=== PATIENT | female | born 1985 | race Caucasian/White ===

== ENCOUNTER 2023-08-10 08:49 | Emergency (ER) | payer OTHER, SELFPAY ==
--- NOTE | ~2023-08-10 | XR_ITS ---
XR chest 2V DATE: 08/10/2023 09:52 INDICATION: Palpitations for 4 weeks TECHNIQUE: PA and lateral views COMPARISON: None FINDINGS: Normal heart size. No hilar or mediastinal enlargement. No pulmonary infiltrate or consolid ation, pleural effusion or pulmonary vascular congestion or pneumothorax is detected. Included skelet al structures are unremarkable other than mild thoracic dextroscoliosis. IMPRESSION: No active cardiopulmonary disease Reviewed, dictated and finalized at location [facility].
--- NOTE | 2023-08-10 09:00 | ECG_ITS ---
Measurements Intervals [place] Rate: 83 P: 53 MI: 136 QRS: -16 QRSD: 99 T: 45 QT: 359 QTc: 422 Interpretive Statements SINUS RHYTHM INCOMPLETE RIGHT BUNDLE BRANCH BLOCK DELAYED PRECORDIAL R/S TRANSITION BORDERLINE ST-T WAVE ABNORMALITY- HIGH LATERAL LEADS BASELINE ARTIFACT- I, II, AVR, AVL, AVF BORDERLINE ECG NO PREVIOUS ECG AVAILABLE FOR COMPARISON Electronically Signed On 08-10-2023 9:19:14 CDT by Hemant Menendez D.O.
[2023-08-10 09:17] VITALS: BP 155/90; PULSE 87; RESP 16; TEMP 36.8; O2SAT 99
[2023-08-10 09:21] VITALS: PULSE 89
[2023-08-10 09:24] LABS: Basophils Percent Auto 0.3 % (0.2-1.2); Eosinophils Absolute Auto 0.1 K/mm3 (0-0.3); Eosinophils Percent Auto 2.2 % (0-4.4); Hematocrit 45.8 % (37.0-47.0); Hemoglobin 15.7 g/dL (12.0-15.0); Immature Granulocyte Absolute 0.01 K/mm3 (0.00-0.031); Immature Granulocyte Percent A 0.2 % (0-0.5); Lymphocytes Percent Auto 23.4 % (18.3-44.2); Mean Corpuscular HGB Conc 34.3 g/dl (32-36); Mean Corpuscular Hemoglobin 31.6 pg (26-34); Mean Corpuscular Volume 92.2 fl (80-100); Mean Platelet Volume 9.7 fl (7.4-10.4); Monocytes Absolute Auto 0.4 K/mm3 (0.1-0.6); Monocytes Percent Auto 7.4 % (2.6-8.5); Neutrophils Percent Auto 66.5 % (45.5-73.1); Platelet Count Result 214 k/mm3 (150-375); Red Blood Count 4.97 M/mm3 (4.2-5.4); Red Cell Distribution Width 12.1 % (11.5-14.5)
[2023-08-10 09:36] LABS: Alanine Aminotransferase 35 U/L (6-35); Alkaline Phosphatase 59 U/L (38-126); Anion Gap 7 mmol/L (8-16); Aspartate Amino Transferase 35 U/L (14-36); Bilirubin,Total 1.5 mg/dL (0.2-1.3); Blood Urea Nitrogen 16 mg/dL (7-17); Calcium 10.1 mg/dL (8.4-10.2); Carbon Dioxide 25 mmol/L (22-30); Chloride 105 mmol/L (98-107); Estimated CRCL calculation 97 ml/min; Estimated Glomerular Filt Rate > 60; Glucose 107 mg/dL (65-110); Lipase 99 U/L (23-300); Potassium 3.9 mmol/L (3.4-5.0); Sodium 137 mmol/L (137-145)
[2023-08-10 09:39] LABS: INR 0.9; Prothrombin Time 12.9 Seconds (11.1-14.7)
--- NOTE | 2023-08-10 09:39 | ED.GENADULT ---
HPI - General Adult General Chief complaint: Arrhythmia/Palpitations Stated complaint: Elevated Heart Rate Time Seen by Provider: 08/10/23 08:59 History of Present Illness HPI narrative: Juliet Romeo is a 37 y/o female who presents today with complaints of left sided chest pain/ elevated heart rate / and feeling SOB. 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 She explains that this time she has been having off and on chest pain for about 4 weeks - she presented to an ER last Thursday and had a cardiac work up that she states was ok. SHe states that she has been monitoring her heart rate at home and today when she was getting her kids ready for school she noticed her heart rate was over 100 up to 109 112. She sat down to get it to go down but it wasn't going down. She then was able to do a rhythm check from her watch which read inconclusive she didn't have chest pain at that time but it concerned her. She called her nurse friends and they suggested she return to the ER. She states that on the way here she started to have left sided chest pain but the pain right now is improving She also adds that her father had a heart attack at 44. Related Data Allergies Allergy/AdvReac Type Severity Reaction Status Date / Time amoxicillin Allergy Unknown Skin Verified 05/29/17 21:20 Reaction minocycline Allergy Unknown itchy Verified 05/29/17 21:20 Penicillins Allergy Unknown Skin Verified 05/29/17 21:20 Reaction Review of Systems Review of Systems: CONSTITUTIONAL: Denies fever, chills, or sweats. EYES: Denies visual changes, redness, or discharge. ENT: Denies rhinorrhea, congestion, sore throat, or otalgia. CARDIOVASCULAR: Reports chest pain that stated today on the way here, palpitations this morning, no edema. RESPIRATORY: Denies cough or dyspnea. GASTROINTESTINAL: Denies abdominal pain, nausea, vomiting, or diarrhea. GENITOURINARY: Denies dysuria or hematuria. SKIN: Denies rash or itching. MUSCULOSKELETAL: Denies back pain, joint pain, or myalgia. NEUROLOGIC: Denies headache, numbness, dizziness, or weakness. PSYCHIATRIC: Denies anxiety or depression. Exam Narrative: GENERAL: Well-appearing, well-nourished, and in no acute distress. HEAD: Normocephalic, atraumatic. EYES: PERRLA and EOMI. ENT: Nares clear, no rhinorrhea or epistaxis. Mucous membranes moist. Oropharynx without tonsillar hypertrophy exudate or other lesions. NECK: Supple. No adenopathy or masses. No carotid bruits or JVD CHEST: Clear to auscultation. No respiratory distress. No wheezes rales or rhonchi HEART: Regular rate and rhythm. No murmur heard. Normal peripheral pulses. ABDOMEN: Soft, nontender, nondistended, normal active bowel sounds. EXTREMITIES: Normal range of motion. No edema. SKIN: Warm, dry, no rash. NEURO: No focal deficits. Alert and oriented x3. PSYCH: Normal mood and affect. Course Vital Signs Vital signs: Vital Signs Temperature 36.8 C 08/10/23 09:17 Pulse Rate 87 08/10/23 09:17 Respiratory Rate 16 08/10/23 09:17 Blood Pressure 155/90 H 08/10/23 09:17 Pulse Oximetry 99 08/10/23 09:17 Temperature 36.8 C 08/10/23 09:17 Pulse Rate 77 08/10/23 14:30 Respiratory Rate 18 08/10/23 14:30 Blood Pressure 119/79 08/10/23 14:30 Pulse Oximetry 98 08/10/23 14:30 Medical Decision Making MDM Narrative Medical decision making narrative: ED COURSE AND MEDICAL DECISION MAKING:? 37 y/o presenting with chest pain. EKG done in triage negative for acute ischemic changes.? Cardiac workup is initiated.? ? EKG: .?Rate 83 SC 136 QRSd 99 QT 359 QTc 422 --[place]-- P 53 QRS -16 T 45 SINUS RHYTHM INCOMPLETE RIGHT BUNDLE BRANCH BLOCK DELAYED PRECORDIAL R/S TRANSITION BORDERLINE ST-T WAVE ABNORMALITY- HIGH LATERAL LEADS BASELINE ARTIFACT- I, II, AVR, AVL, AV
[2023-08-10 09:40] LABS: Partial Thromboplastin Time 24.1 Seconds (22.3-36.8)
[2023-08-10 09:46] LABS: Troponin I < 0.012 ng/mL (0.000-0.034)
[2023-08-10 10:00] VITALS: BP 130/76; PULSE 75; RESP 16; O2SAT 100
[2023-08-10 10:06] LABS: D Dimer 0.33 ug/mL (<0.48)
[2023-08-10 10:08] LABS: NT Pro B Type Natriuretic Pept < 20 pg/mL (19.9-100)
[2023-08-10 11:30] VITALS: BP 131/78; PULSE 77; RESP 16; O2SAT 100
[2023-08-10 13:00] VITALS: BP 125/72; PULSE 81; RESP 16; O2SAT 99
--- NOTE | 2023-08-10 13:27 | ECG_ITS ---
Measurements Intervals [place] Rate: 67 P: 36 HI: 142 QRS: -16 QRSD: 89 T: 53 QT: 404 QTc: 429 Interpretive Statements SINUS RHYTHM BASELINE ARTIFACT- I, II, III, AVF NORMAL ECG COMPARED TO ECG 08/10/2023 09:06:36 NO SIGNIFICANT CHANGES Electronically Signed On 08-11-2023 9:15:00 CDT by Hemant Menendez D.O.
[2023-08-10 13:33] LABS: Troponin I < 0.012 ng/mL (0.000-0.034)
[2023-08-10 14:30] VITALS: BP 119/79; PULSE 77; RESP 18; O2SAT 98
--- NOTE | 2023-08-13 15:34 | WPDHOLTEREM ---
Holter/Event Monitor Holter/Event Monitor Date of procedure: 08/10/23 Holter/Event Procedure: 48 Hr Holter Monitor Indications: Chest pain, tachycardia Conclusion: 1. 48 hour holter monitor on 08/10/23. 2. Underlying rhythm is sinus rhythm. HR range 45-140 bpm; average HR 74 bpm. HR at 45 bpm was at 23:42. HR at 140 bpm was at 08:10. 3. There are 21 premature supraventricular complexes and 4 supraventricular couplets. No supraventricular tachycardia. 4. There are 227 premature ventricular complexes. No ventricular tachycardia. 5. No sinoatrial or atrioventricular blocks. No significant pauses greater than 2 seconds. 6. No symptoms available for correlation.
== END 2023-08-10 14:30 | disposition home or self-care (01) ==
PROVIDERS: Emergency Provider Nurse Practitioner Family
DX: R07.9 Chest pain, unspecified (principal); I45.10 Unspecified right bundle-branch block; R94.31 Abnormal electrocardiogram [ECG] [EKG]
CPT/HCPCS: 36415; 71046; 80053; 83690; 83880; 84484; 85025; 85380; 85610; 85730; 93005; 93225; 93226; 99284

== ENCOUNTER 2023-08-12 02:30 | Emergency (ER) | payer OTHER, SELFPAY ==
--- NOTE | ~2023-08-12 | XR_ITS ---
Portable chest x-ray Comparison: 08/10/2023 Clinical History: Chest pain Findings: Lungs are clear, without focal consolidation or pleural effusion. Cardiomediastinal silho uette is stable. Bones and soft tissues are unremarkable. Impression: Normal chest. Reviewed, dictated and finalized at [facility]. Impression: Normal chest.
--- NOTE | 2023-08-12 02:32 | ECG_ITS ---
Measurements Intervals [place] Rate: 84 P: 48 TN: 136 QRS: -19 QRSD: 102 T: 44 QT: 355 QTc: 421 Interpretive Statements SINUS RHYTHM WITH SINUS ARRHYTHMIA INCOMPLETE RIGHT BUNDLE BRANCH BLOCK BASELINE ARTIFACT- I, II, III, AVR, AVF, V1-V6 BORDERLINE ECG COMPARED TO ECG 08/10/2023 13:27:44 SINUS ARRHYTHMIA NOW PRESENT INCOMPLETE RIGHT BUNDLE-BRANCH BLOCK NOW PRESENT Electronically Signed On 08-12-2023 6:29:00 CDT by Hemant Menendez D.O.
[2023-08-12 02:36] VITALS: BP 134/97; PULSE 72; RESP 16; TEMP 36.4; O2SAT 100
[2023-08-12 02:50] LABS: Basophils Percent Auto 0.4 % (0.2-1.2); Eosinophils Absolute Auto 0.2 K/mm3 (0-0.3); Eosinophils Percent Auto 2.3 % (0-4.4); Hematocrit 45.6 % (37.0-47.0); Hemoglobin 15.6 g/dL (12.0-15.0); Immature Granulocyte Absolute 0.03 K/mm3 (0.00-0.031); Immature Granulocyte Percent A 0.4 % (0-0.5); Lymphocytes Absolute Auto 2.13 K/mm3 (0.9-3.2); Lymphocytes Percent Auto 30.5 % (18.3-44.2); Mean Corpuscular HGB Conc 34.2 g/dl (32-36); Mean Corpuscular Hemoglobin 31.3 pg (26-34); Mean Corpuscular Volume 91.6 fl (80-100); Mean Platelet Volume 9.5 fl (7.4-10.4); Monocytes Absolute Auto 0.5 K/mm3 (0.1-0.6); Monocytes Percent Auto 7.6 % (2.6-8.5); Neutrophils Absolute Auto 4.1 K/mm3 (1.3-6.7); Neutrophils Percent Auto 58.8 % (45.5-73.1); Platelet Count Result 205 k/mm3 (150-375); Red Blood Count 4.98 M/mm3 (4.2-5.4)
[2023-08-12] MEDS: ASPIRIN 81 MG CHEWABLE TABLET 324 MG PO (02:51)
[2023-08-12 02:52] VITALS: PULSE 83
[2023-08-12 02:53] VITALS: BP 134/97; PULSE 75; RESP 15; TEMP 36.7; O2SAT 100
--- NOTE | 2023-08-12 02:59 | ED.GENADULT ---
HPI - General Adult General Chief complaint: Chest Pain Stated complaint: CHEST PAIN, NAUSEA Time Seen by Provider: 08/12/23 02:40 History of Present Illness HPI narrative: Patient 37-year-old female who presents emergency department with chief complaint of chest pain. Patient reports that she woke up this evening in the low 90s and had discomfort in her chest. Patient states heaviness sensation also felt as though her heart beating fast. Patient seen in the emergency department recently and had a Holter monitor placed. The patient states that she has family history for cardiac disease at a young age with her father having heart attack at age 44. Related Data Allergies Allergy/AdvReac Type Severity Reaction Status Date / Time amoxicillin Allergy Unknown Skin Verified 05/29/17 21:20 Reaction minocycline Allergy Unknown itchy Verified 05/29/17 21:20 Penicillins Allergy Unknown Skin Verified 05/29/17 21:20 Reaction Review of Systems Review of Systems: A 10 system review of systems was completed on the patient and is negative except for what is stated in the HPI. Nursing and ancillary documentation was reviewed. Exam Narrative: GENERAL: Well-appearing, well-nourished, and in no acute distress. HEAD: Normocephalic, atraumatic. EYES: PERRLA and EOMI. ENT: Nares clear, no rhinorrhea or epistaxis. Mucous membranes moist. NECK: Supple. CHEST: Clear to auscultation. No respiratory distress. HEART: Regular rate and rhythm. No murmur heard. Normal peripheral pulses. ABDOMEN: Soft, nontender, nondistended, normal active bowel sounds. EXTREMITIES: Normal range of motion. No edema. SKIN: Warm, dry, no rash. NEURO: No focal deficits. Alert and oriented x3. PSYCH: Normal mood and affect. Course Vital Signs Vital signs: Vital Signs Temperature 36.4 C L 08/12/23 02:36 Pulse Rate 72 08/12/23 02:36 Respiratory Rate 16 08/12/23 02:36 Blood Pressure 134/97 H 08/12/23 02:36 Pulse Oximetry 100 08/12/23 02:36 Oxygen Delivery Room Air 08/12/23 02:36 Temperature 36.7 C 08/12/23 02:53 Pulse Rate 80 08/12/23 05:40 Respiratory Rate 12 08/12/23 05:40 Blood Pressure 119/90 08/12/23 05:40 Pulse Oximetry 100 08/12/23 05:40 Oxygen Delivery Room Air 08/12/23 02:53 Medical Decision Making MDM Narrative Medical decision making narrative: Differential diagnosis includes ACS, noncardiac chest pain, atypical chest pain, palpitations, dysrhythmia EKG showed no acute ischemic changes Laboratory studies were obtained on the patient showed a white count 7.0 hemoglobin 15.6 electrolytes are within normal limits bilirubin was slightly elevated 1.7 it was 1.5 on her previous visit initial troponin was negative X-ray showed no widened mediastinum no pneumothorax and no evidence of pneumonia. Repeat troponin was negative. Patient be discharged home follow-up the primary care provider Vital Signs Vital Signs: Vital Signs Temperature 36.4 C L 08/12/23 02:36 Pulse Rate 72 08/12/23 02:36 Respiratory Rate 16 08/12/23 02:36 Blood Pressure 134/97 H 08/12/23 02:36 Pulse Oximetry 100 08/12/23 02:36 Oxygen Delivery Room Air 08/12/23 02:36 Temperature 36.7 C 08/12/23 02:53 Pulse Rate 80 08/12/23 05:40 Respiratory Rate 12 08/12/23 05:40 Blood Pressure 119/90 08/12/23 05:40 Pulse Oximetry 100 08/12/23 05:40 Oxygen Delivery Room Air 08/12/23 02:53 Lab Data 08/12/23 02:45 08/12/23 02:45 Labs: Lab Results 08/12/23 08/12/23 Range/Units 02:45 05:19 WBC 7.0 (4.5-10.0) K/mm3 RBC 4.98 (4.2-5.4) M/mm3 Hgb 15.6 H (12.0-15.0) g/dL Hct 45.6 (37.0-47.0) % MCV 91.6 (80-100) fl MCH 31.3 (26-34) pg MCHC 34.2 (32-36) g/dl RDW 12.0 (11.5-14.5) % Plt Count 205 (150-375) k/mm3 MPV 9.5 (7.4-10.4) fl Immature Gran % (Auto) 0.4 (0-0.5) % Neut % (Auto) 58.8 (45.5-73.1) %
[2023-08-12 03:00] LABS: Alanine Aminotransferase 36 U/L (6-35); Alkaline Phosphatase 57 U/L (38-126); Anion Gap 10 mmol/L (8-16); Aspartate Amino Transferase 35 U/L (14-36); Bilirubin,Total 1.7 mg/dL (0.2-1.3); Blood Urea Nitrogen 13 mg/dL (7-17); Calcium 10.3 mg/dL (8.4-10.2); Carbon Dioxide 24 mmol/L (22-30); Chloride 105 mmol/L (98-107); Estimated CRCL calculation 81 ml/min; Estimated Glomerular Filt Rate > 60; Glucose 98 mg/dL (65-110); Lipase 108 U/L (23-300); Potassium 3.5 mmol/L (3.4-5.0); Sodium 139 mmol/L (137-145)
[2023-08-12 03:01] LABS: INR 0.9; Prothrombin Time 12.6 Seconds (11.1-14.7)
[2023-08-12 03:02] LABS: Partial Thromboplastin Time 24.8 Seconds (22.3-36.8)
[2023-08-12 03:11] LABS: Troponin I < 0.012 ng/mL (0.000-0.034)
[2023-08-12 04:18] VITALS: BP 126/87; PULSE 71; RESP 12; O2SAT 100
--- NOTE | 2023-08-12 05:10 | ECG_ITS ---
Measurements Intervals [place] Rate: 72 P: 41 [place]: 147 QRS: -30 QRSD: 91 T: 50 QT: 389 QTc: 428 Interpretive Statements SINUS RHYTHM INCOMPLETE RIGHT BUNDLE BRANCH BLOCK BASELINE ARTIFACT- I, III, AVR, AVL, AVF BORDERLINE ECG COMPARED TO ECG 08/12/2023 02:44:59 NO SIGNIFICANT CHANGES Electronically Signed On 08-12-2023 6:32:54 CDT by Hemant Menendez D.O.
[2023-08-12 05:40] VITALS: BP 119/90; PULSE 80; RESP 12; O2SAT 100
[2023-08-12 05:49] LABS: Troponin I < 0.012 ng/mL (0.000-0.034)
== END 2023-08-12 06:19 | disposition home or self-care (01) ==
PROVIDERS: Emergency Provider Emergency Medicine
DX: R07.89 Other chest pain (principal); I45.10 Unspecified right bundle-branch block
CPT/HCPCS: 36415; 71045; 80053; 83690; 84484; 85025; 85610; 85730; 93005; 99284; A9270